=== PATIENT | female | born 1970 | race Caucasian/White ===

== ENCOUNTER 2021-08-10 16:34 | Outpatient (CLI) | payer BC, SELFPAY ==
--- NOTE | 2021-08-10 16:48 | XR_ITS ---
WS: [id number] CHEST 2 VIEWS HISTORY: ALLERGIC RHINITIS DUE TO POLLEN COMPARISON: None available. Lungs: Well aerated lungs. 7 mm nodule in the central LEFT lung. There is an granuloma at the RIGHT l sylvia base. No pneumonia. Normal vasculature. Cardiac size: Normal. Mediastinum/Aorta: Normal mediastinum. Bones: Normal. XR/XR chest 2V* [id number] IMPRESSION: 1. No pneumonia. 2. Indeterminate 7 mm nodule in the central LEFT lung. Differential includes e charles neoplasm, vessel seen on end and granuloma. No prior studies for compariso n. Recommend follow-up chest CT with IV contrast to further characterize.
== END 2021-08-10 16:35 | disposition home or self-care (01) ==
LOC: RAD 16:40
PROVIDERS: PCP Pediatrics; Visit Provider Specialist
DX: J30.1 Allergic rhinitis due to pollen (principal); R91.1 Solitary pulmonary nodule
CPT/HCPCS: 71046

== ENCOUNTER → 2021-08-21 09:10 | Outpatient (BNVA) | payer BC, SELFPAY | PROVIDERS: Visit Provider Specialist | DX: Z01.812 Encounter for preprocedural laboratory examination (principal); Z20.822 Contact with and (suspected) exposure to COVID-19 | CPT/HCPCS: 87635 ==

== ENCOUNTER 2021-08-26 12:40 | Outpatient (CLI) | payer BC, SELFPAY ==
--- NOTE | 2021-08-26 13:12 | PFTS_ITS ---
Date of Study:08/26/21 Date of Dictation: MECHANICS: Forced vital capacity (FVC) is normal. Forced expiratory volume in one second (FEV1) is normal. FEV1/FVC is normal. FLOW VOLUME LOOP: No peak expiratory flow in the expiratory flow volume loop. LUNG VOLUMES: Not measured DIFFUSING CAPACITY FOR CARBON MONOXIDE: Not measured. INTERPRETATION: The prebronchodilator spirometry is normal. MTDD
== END 2021-08-26 12:41 | disposition home or self-care (01) ==
LOC: RT 12:44
PROVIDERS: PCP Pediatrics; Visit Provider Specialist
DX: J30.1 Allergic rhinitis due to pollen (principal)
CPT/HCPCS: 94010